=== PATIENT | female | born 1965 | race Caucasian/White ===

== ENCOUNTER 2023-04-13 16:53 | Emergency (ER) | payer SELFPAY ==
--- NOTE | 2023-04-13 16:59 | SUR.PHASEI ---
Went to call pt for triage - access informed RN that pt immediately left the ED after registering. The pt was not triaged.
== END 2023-04-13 16:59 | disposition left against medical advice (07) ==
LOC: ER 17:01
DX: Z53.21 Procedure and treatment not carried out due to patient leaving prior to being seen by health care provider (principal)